=== PATIENT | female | born 1960 | race Two or more races ===

== ENCOUNTER 2016-07-29 11:22 | Inpatient (IN) | payer SELFPAY ==
[~2016-07-29 11:22] MED LIST: ACIPHEX20 MG PO; AMLODIPINE BESY10 MG PO; ASPIRIN325 MG PO; BENTYL20 MG PO; CALCIUM500 MG; CALCIUM600 MG PO; CHOLESTEROL MED; ECHINACEA PO; FISH OIL 1,01 CAP.EC PO; GEMFIBROZIL600 MG PO; HYDROCHLOROTHIA25 MG PO; LOPID600 MG PO; MULTIVITAMIN1 CAP; MULTIVITAMIN1 TAB PO; NORCO 5/325 TAB1 TAB PO; NORCO 7.5/325 T1 TAB PO; NORVASC10 MG; NORVASC10 MG PO; PERCOCET 5/3251 TAB PO; PROTONIX40 MG; PROTONIX40 MG PO; VITAMIN D3; VITAMIN E400 UNI1 PO; [UNRECOGNIZED DRUG - OTHER] PO
[2016-07-29 12:26] LABS: BASO % 0.1 % (0-2); EOS % 0.4 % (0-7); EOSINOPHIL ABSOLUTE COUNT 0.1 tho/cmm (0.0-0.7); HCT-HEMATOCRIT 42.3 % (34.0-49.0); HGB-HEMOGLOBIN 14.5 gm/dl (12.0-15.5); IMMATURE GRANULOCYTES ABSOLUTE 0.05 tho/cmm (0-0.03); IMMATURE GRANULOCYTES PERCENT 0.3 % (0-0.3); LYMPH % 5.7 % (20-45); LYMPH ABSOLUTE COUNT 1.1 tho/cmm (0.8-4.5); MCH (MEAN CORPUSCULAR HGB) 30.3 pg (28.0-32.0); MCHC MEAN CORPUSCULAR HGB CONC 34.3 % (32.0-36.0); MCV (MEAN CELL VOLUME) 88.5 fl (82.0-96.0); MEAN PLATELET VOLUME 9.2 cmc (9.4-12.4); MONO % 4.5 % (0-12); MONOCYTE ABSOLUTE COUNT 0.9 tho/cmm (0.0-1.2); NEUTROPHIL ABSOLUTE COUNT 17.2 tho/cmm (1.6-8.0); NEUTROPHIL-AUTOMATED 17.2 tho/cmm (1.6-8.0); PLATELET COUNT 358 tho/cmm (150-450); RED BLOOD COUNT 4.78 mil/cmm (4.00-5.20); RED CELL DISTRIBUTION WIDTH 12.6 % (12.4-16.4); WHITE BLOOD COUNT 19.3 tho/cmm (4.0-10.0)
[2016-07-29 12:27] LABS: URINE APPEARANCE HAZY; URINE BILIRUBIN NEGATIVE (NEG); URINE BLOOD LARGE (NEG); URINE COLOR YELLOW; URINE GLUCOSE (UA) NEGATIVE (NEG); URINE KETONE NEGATIVE (NEG); URINE LEUKOCYTE ESTERASE POSITIVE (NEG); URINE NITRITE NEGATIVE (NEG); URINE PROTEIN MODERATE (NEG)
[2016-07-29 12:35] LABS: URINE EPITHELIAL CELLS 0-3 /[HPF] (0-10); URINE WBC 0-2 /[HPF] (0-5)
[2016-07-29 12:36] LABS: URINE BACTERIA 1+
[2016-07-29 12:40] LABS: ALBUMIN 3.9 g/dl (3.5-5.0); ALKALINE PHOSPHATASE 97 U/L (33-138); ALT/SGPT 19 U/L (12-78); ANION GAP 11 mmol/L (0-20); AST/SGOT 15 U/L (10-40); BILIRUBIN,TOTAL 0.5 mg/dl (0-1.5); BLOOD UREA NITROGEN 12 mg/dl (6-24); CALCIUM 8.8 mg/dl (8.5-10.5); CARBON DIOXIDE-VENOUS 27 mmol/L (22-32); CHLORIDE 105 mmol/l (96-110); CREATININE 0.63 mg/dl (0.50-1.10); GLUCOSE 140 mg/dL (70-110); LIPASE 115 U/L (73-393); POTASSIUM 3.9 mmol/L (3.7-5.1); SODIUM 139 mmol/L (135-145); eGFR VALUE FOR BLACK >90 mL/Min
[2016-07-29 15:55] LABS: C-REACTIVE PROTEIN <0.3 mg/dl (0-0.9)
--- NOTE | 2016-07-29 20:05 | NUR ---
VIRTUAL CARE NOTE: UNABLE TO COMMUNICATE WITH PT. DUE TO LANGUAGE BARRIER AND NO INTERPRETOR PRESENT, WILL CONTINUE TO MONITOR.
[2016-07-30 06:00] LABS: BASO % 0.1 % (0-2); EOS % 0.5 % (0-7); HCT-HEMATOCRIT 36.7 % (34.0-49.0); HGB-HEMOGLOBIN 12.4 gm/dl (12.0-15.5); IMMATURE GRANULOCYTES ABSOLUTE 0.02 tho/cmm (0-0.03); IMMATURE GRANULOCYTES PERCENT 0.2 % (0-0.3); LYMPH % 23.9 % (20-45); MCH (MEAN CORPUSCULAR HGB) 29.7 pg (28.0-32.0); MCHC MEAN CORPUSCULAR HGB CONC 33.8 % (32.0-36.0); MEAN PLATELET VOLUME 9.2 cmc (9.4-12.4); MONO % 5.9 % (0-12); MONOCYTE ABSOLUTE COUNT 0.5 tho/cmm (0.0-1.2); NEUTROPHIL ABSOLUTE COUNT 5.8 tho/cmm (1.6-8.0); NEUTROPHIL-AUTOMATED 5.8 tho/cmm (1.6-8.0); NEUTROPHILS % 69.4 % (40-80); PLATELET COUNT 295 tho/cmm (150-450); RED BLOOD COUNT 4.17 mil/cmm (4.00-5.20); RED CELL DISTRIBUTION WIDTH 12.8 % (12.4-16.4)
[2016-07-30 06:04] LABS: WHITE BLOOD COUNT 8.4 tho/cmm (4.0-10.0)
[2016-07-30 06:13] LABS: ANION GAP 11 mmol/L (0-20); BLOOD UREA NITROGEN 6 mg/dl (6-24); CALCIUM 8.1 mg/dl (8.5-10.5); CARBON DIOXIDE-VENOUS 26 mmol/L (22-32); CHLORIDE 107 mmol/l (96-110); CREATININE 0.48 mg/dl (0.50-1.10); GLUCOSE 84 mg/dL (70-110); MAGNESIUM 1.8 mg/dl (1.8-2.6); POTASSIUM 3.5 mmol/L (3.7-5.1); SODIUM 140 mmol/L (135-145); eGFR VALUE FOR BLACK >90 mL/Min
[2016-07-30] MEDS ORDERED: TYLENOL325 M2 PO (13:26)
--- NOTE | 2016-07-30 14:35 | NUR ---
VIRTUAL CARE NOTE: PT DRESSED READY TO GO HOME DAUGHTER-[employer] AT [facility] SPEAKS [facility] READY FOR DISCHARGE TEACHING. INFORMATION GIVEN TO DAUGHTER AND PT, NO QUESTIONS AFTER TEACHING DONE. INFORMED FLOOR NURSE DISCHARGE DONE.
== END 2016-07-30 15:00 | DRG 392 ==
LOC: EDMED 11:22 → EMR2 15:22 → 5WD 16:50
PROVIDERS: Emergency Medicine; Internal Medicine Cardiovascular Disease; ADMIT Hospitalist
DX: A08.11 Acute gastroenteropathy due to Norwalk agent (principal); K80.20 Calculus of gallbladder without cholecystitis without obstruction; I10 Essential (primary) hypertension; K92.1 Melena; E78.5 Hyperlipidemia, unspecified; E11.9 Type 2 diabetes mellitus without complications; M19.90 Unspecified osteoarthritis, unspecified site; F17.210 Nicotine dependence, cigarettes, uncomplicated
CPT/HCPCS: J1170; J2270; J2405; J7030; Q9967